=== PATIENT | female | born 1940 | race African-American/Black ===

== ENCOUNTER → 2021-07-22 | Outpatient (CLI) | payer MEDICARE | LOC: RAD 13:04 | PROVIDERS: ATTEND Emergency Medicine | DX: M79.662 Pain in left lower leg (principal); M79.661 Pain in right lower leg | CPT/HCPCS: 93970 ==

== ENCOUNTER → 2021-10-08 | Outpatient (CLI) | payer MEDICARE | LOC: CARD 09:47 | PROVIDERS: ATTEND Emergency Medicine | DX: M79.661 Pain in right lower leg (principal); M79.662 Pain in left lower leg | CPT/HCPCS: 93925; 93970 ==